=== PATIENT | male | born 1990 | race Caucasian/White ===

== ENCOUNTER → 2019-06-27 | Emergency (ER) | payer OTHER ==
[~2019-06-27] VITALS: Ht 175.3 cm; Wt 180.0 kg
[~2019-06-27] MED LIST: AMOX-422 PO; IBUP-1984 PO; LIDOcaine 1% W/epiNEPHrine 1:200,000 10ml vial IJ ONE; LIDOcaine 1% w/EPI 1:200,000 injection 10mL vial IM ONE; NO HOME MEDS; TETanus/Pertussis (Acell)/Diphther VAC/PF (Tdap-Adult) 0.5ml syringe IMVAC ONE; rabies immune globulin/PF 150 unit/ml inj IMVAC ONE; rabies vaccine (PCEC)/PF 2.5 unit kit IMVAC ONE
[2019-06-27 15:08] VITALS: BP 187/99
== END | disposition home or self-care (01) ==
LOC: ER 15:02
DX: S81.811A Laceration without foreign body, right lower leg, initial encounter (principal); J45.909 Unspecified asthma, uncomplicated; F12.90 Cannabis use, unspecified, uncomplicated; W54.0XXA Bitten by dog, initial encounter; Y93.89 Activity, other specified; Y92.89 Other specified places as the place of occurrence of the external cause; Y99.9 Unspecified external cause status
CPT/HCPCS: 12004; 90375; 90471; 90472; 90675; 96372; 99284

== ENCOUNTER 2019-06-30 12:47 | Emergency (ER) | payer OTHER ==
[~2019-06-30] VITALS: Ht 175.3 cm; Wt 180.0 kg
[~2019-06-30 12:47] MED LIST changes: -LIDOcaine 1% W/epiNEPHrine 1:200,000 10ml vial IJ ONE; -LIDOcaine 1% w/EPI 1:200,000 injection 10mL vial IM ONE; -TETanus/Pertussis (Acell)/Diphther VAC/PF (Tdap-Adult) 0.5ml syringe IMVAC ONE; -rabies immune globulin/PF 150 unit/ml inj IMVAC ONE; -rabies vaccine (PCEC)/PF 2.5 unit kit IMVAC ONE
[2019-06-30 12:54] VITALS: BP 183/109
[2019-06-30] MEDS ORDERED: rabies vaccine (PCEC)/PF 2.5 unit kit IMVAC ONE (13:05)
--- NOTE | 2019-06-30 13:31 | NUR ---
Wound examinded. No redness or swelling. Sutures in tact. New dressing applied.
== END 2019-06-30 13:35 | disposition home or self-care (01) ==
LOC: ER 12:48
DX: Z23 Encounter for immunization (principal); J45.909 Unspecified asthma, uncomplicated; F12.90 Cannabis use, unspecified, uncomplicated; F10.99 Alcohol use, unspecified with unspecified alcohol-induced disorder; Z79.899 Other long term (current) drug therapy; Y90.9 Presence of alcohol in blood, level not specified
CPT/HCPCS: 90471; 90675; 99283

== ENCOUNTER 2019-07-11 16:00 | Emergency (ER) | payer OTHER ==
[~2019-07-11] VITALS: Ht 175.3 cm; Wt 162.0 kg
[~2019-07-11 16:00] MED LIST changes: -AMOX-422 PO
[2019-07-11 16:26] VITALS: BP 164/104
[2019-07-11] MEDS ORDERED: rabies vaccine (PCEC)/PF 2.5 unit kit IMVAC ONE (17:00)
== END 2019-07-11 17:16 | disposition home or self-care (01) ==
LOC: ER 16:01
DX: Z23 Encounter for immunization (principal); S81.811D Laceration without foreign body, right lower leg, subsequent encounter; J45.909 Unspecified asthma, uncomplicated; F12.90 Cannabis use, unspecified, uncomplicated; Z79.899 Other long term (current) drug therapy; W54.0XXD Bitten by dog, subsequent encounter
CPT/HCPCS: 90471; 90675; 99283

== ENCOUNTER 2020-09-04 01:54 | Emergency (ER) | payer OTHER ==
[~2020-09-04] VITALS: Ht 175.3 cm; Wt 169.5 kg
[~2020-09-04 01:54] MED LIST changes: -IBUP-1984 PO
[2020-09-04] MEDS ORDERED: dexamethasone sod phosphate 10mg/ml inj IV STA (02:17)
[2020-09-04] MEDS ORDERED: proCHLORperazine 10 MG/2 ml inj IV ONE (02:20)
[2020-09-04] MEDS ORDERED: normal saline 1000ML IV soln IVB ONE (02:20)
[2020-09-04] MEDS ORDERED: ketorolac tromethamine 15mg/ml inj. IV ONE (02:20)
[2020-09-04] MEDS ORDERED: SUMAtriptan succ. 6 MG/0.5ml vial SQ ONE (02:20)
[2020-09-04] MEDS ORDERED: hydrALAZINE 20mg/ml inj. IV ONE (02:20)
[2020-09-04 04:06] VITALS: BP 155/69
== END 2020-09-04 04:08 | disposition home or self-care (01) ==
LOC: ER 01:54
DX: R51.9 Headache, unspecified (principal); R11.0 Nausea; H53.8 Other visual disturbances; I10 Essential (primary) hypertension; J45.909 Unspecified asthma, uncomplicated; F12.90 Cannabis use, unspecified, uncomplicated; Z72.89 Other problems related to lifestyle
CPT/HCPCS: 70450; 96361; 96372; 96374; 96375; 99285; J0360; J0780; J1100; J1885; J7030; J3030